=== PATIENT | male | born 1995 | race Caucasian/White ===

== ENCOUNTER 2019-08-15 21:01 | Emergency (ER) | payer OTHER ==
[~2019-08-15 21:01] MED LIST: ISOVUE-370 76%-LOCM 1 ML ONE
[2019-08-15] MEDS ORDERED: Ondansetron PF 4 MG/2 ML Vial ONE (21:34)
[2019-08-15] MEDS ORDERED: Morphine 4 MG/ML VIAL ONE (21:34)
[2019-08-15 21:40] LABS: #Basophils 0.1 thou/uL (0.0-0.2); #Lymphocytes 0.9 thou/uL (1.20-3.40); %Basophils 0.3 % (0.0-1.0); %Eosinophils 0.2 % (0.0-10.0); %Lymphocytes 4.8 % (21.0-51.0); %Monocytes 5.3 % (0.0-10.0); %Neutrophils 89.4 % (42.0-75.0); Hemoglobin 17.4 g/dL (14.0-18.0); Mean Corpuscular HGB CONC 34.3 g/dL (32.0-36.0); Mean Corpuscular Hemoglobin 30.4 pg (27.0-31.0); Mean Corpuscular Volume 88.8 fL (78.0-98.0); Mean Platelet Volume 8.2 fL (7.4-10.4); Platelet Count 297 thou/uL (130-400); RBC Distribution Width 11.8 % (11.5-14.5); Red Blood Cell (RBC) Count 5.72 mill/uL (4.70-6.10)
[2019-08-15 22:07] LABS: ALT (SGPT) 17 U/L (8-55); AST (SGOT) 17 U/L (5-34); Albumin 5.1 g/dL (3.5-5.0); Alkaline Phosphatase 75 U/L (40-150); Anion Gap 15 mmol/L (10-20); BUN (Urea Nitrogen) 12 mg/dL (8.9-20.6); Bilirubin, Total 1.1 mg/dL (0.2-1.2); Calc. Creatinine Clearance 0 mL/min (70-130); Calcium 10.1 mg/dL (7.8-10.44); Carbon Dioxide 26 mmol/L (22-29); Chloride 100 mmol/L (98-107); Estimated GFR-MDRD Greater than 90; Globulin 2.9 g/dL (2.4-3.5); Glucose 119 mg/dL (70-105); Potassium 3.4 mmol/L (3.5-5.1); Sodium 138 mmol/L (136-145)
[2019-08-15 23:00] LABS: Bacteria/HPF None Seen HPF (None Seen); Bilirubin Negative (Negative); Blood, Urine 2+ (Negative); Clarity Clear (Clear); Glucose, Urine (Dipstick) Normal (Negative); Leukocyte Negative Leu/uL (Negative); Nitrite Negative (Negative); Protein, Urine (Dipstick) 20 mg/dL (Neg-Trace); Squamous Epithelial None Seen HPF (0-3); Urobilinogen Normal mg/dL (Less than 2)
[2019-08-16] MEDS ORDERED: Lidocaine Viscous Sol 2% 15 ml UD Cup ONE (00:20)
[2019-08-16] MEDS ORDERED: Mag-Al 1200 mg/1200 mg/30 ML UDCUP ONE (00:20)
[2019-08-16] MEDS ORDERED: Morphine 4 MG/ML VIAL ONE (00:57)
[2019-08-16] MEDS ORDERED: Ondansetron PF 4 MG/2 ML Vial ONE (01:13)
--- NOTE | 2019-08-16 09:14 | CT ---
PRELIMINARY REPORT/[facility]/EMERGENCY AFTER HOURS PROCEDURE: EXAM: CT Abdomen and Pelvis With Contrast EXAM DATE/TIME: 08/16/2019 12:29 AM CLINICAL HISTORY: 24 years old, male; Abdominal pain; Patient HX: PT presents for upper abd pain and vomiting starting approx 8 hrs lpta. Denies fever, diarrhea, bloody stools, bloody emesis, or urinary symptoms. Alleviat ed by lying down and aggravated by eating. PT has had no medications for symptoms. He has history of celiac's, but states he has not eaten any gluten TECHNIQUE: Imaging protocol: Computed tomography of the abdomen and pelvis with intravenous contrast. COMPARISON: No relevant prior studies available. FINDINGS: Lungs: No mass. No consolidation. Left lower lobe punctate nonspecific pulmonary nodule (ax im 4). Liver: No acute findings. No mass. Gallbladder and bile ducts: No calcified stones. No ductal dilation. Pancreas: No acute findings. No mass. No ductal dilation. Spleen: No acute findings. No mass. Adrenals: No acute findings. No mass. 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 No hydroureter. Pu nctate nonobstructing left renal calculus. Mild left perirenal stranding/edema. Stomach and bowel: No obstruction. Appendix: No evidence of appendicitis. Intraperitoneal space: No free air. No significant fluid collection. Vasculature: No acute findings. No abdominal aortic aneurysm. Lymph nodes: No significant lymphadenopathy. Bladder: No acute findings. Reproductive: No acute findings. Bones/joints: No acute fracture. Soft tissues: No acute findings. 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 Punctate nonobstructing left renal calculus. Mild left perirenal stranding/edema. Thank you for allowing us to participate in the care of your patient. Dictated and Authenticated by: Erik Downs MD 08/16/2019 1:08 AM Central Time ([place] & [place]) FINAL REPORT CT OF ABDOMEN AND PELVIS: DATE: 08/16/2019. COMPARISON: None. HISTORY: Upper abdominal pain and vomiting. FINDINGS: I agree with the preliminary [facility] report. Imaged lung bases are unremarkable. No free intraperiton eal air or fluid. The liver, gallbladder, spleen, pancreas, and adrenal glands are unremarkable. There is a horseshoe kidney present. There is severe hydronephrosis and marked cortical thinning inv olving the left aspect of the horseshoe kidney. The renal pelvis on the left is dilated. The ureter on the left does not appear dilated. Evaluation of the bowel is limited without oral contrast media. There is no evidence for bowel infla mmatory change or bowel obstruction. A linear suture line in the region of the cecal apex suggests p rior appendectomy. There is a punctate intrarenal calculus within the left kidney posteriorly on axial image 41. There is minimal left-sided perinephric stranding, etiology uncertain. The vascular structures appear patent. No lymphadenopathy. No acute osseous abnormality. IMPRESSION: Horseshoe kidney with severe hydronephrosis and diffuse cortical thinning involving the left kidney. Perhaps this is related to a UPJ obstruction. There is mild left perinephric stranding, etiology un certain. Recommend followup urology consultation. CODE T POS: OFF
== END 2019-08-16 01:45 | disposition home or self-care (01) ==
LOC: ERS 21:01
DX: R10.10 Upper abdominal pain, unspecified (principal); R11.2 Nausea with vomiting, unspecified
CPT/HCPCS: 74177; 80053; 81003; 81015; 83690; 85025; 96361; 96374; 96375; 96376; J2270; J2405; Q9966

== ENCOUNTER 2020-02-02 16:50 | Emergency (ER) | payer OTHER ==
[2020-02-02 17:54] LABS: #Basophils 0.1 thou/uL (0.0-0.2); #Eosinphils 0.1 thou/uL (0.0-0.7); #Lymphocytes 1.3 thou/uL (1.20-3.40); #Monocytes 0.6 thou/uL (0.11-0.59); %Basophils 0.5 % (0.0-1.0); %Eosinophils 0.8 % (0.0-10.0); %Lymphocytes 10.7 % (21.0-51.0); %Monocytes 4.7 % (0.0-10.0); %Neutrophils 83.3 % (42.0-75.0); Hemoglobin 15.7 g/dL (14.0-18.0); Mean Corpuscular HGB CONC 34.5 g/dL (32.0-36.0); Mean Corpuscular Hemoglobin 30.9 pg (27.0-31.0); Mean Corpuscular Volume 89.5 fL (78.0-98.0); Platelet Count 274 thou/uL (130-400); RBC Distribution Width 11.6 % (11.5-14.5); Red Blood Cell (RBC) Count 5.09 mill/uL (4.70-6.10)
[2020-02-02 18:13] LABS: ALT (SGPT) 40 U/L (8-55); AST (SGOT) 25 U/L (5-34); Albumin 4.3 g/dL (3.5-5.0); Alkaline Phosphatase 72 U/L (40-110); Anion Gap 14 mmol/L (10-20); BUN (Urea Nitrogen) 12 mg/dL (8.9-20.6); Bilirubin, Total 0.6 mg/dL (0.2-1.2); Calc. Creatinine Clearance 0 mL/min (70-130); Calcium 8.9 mg/dL (7.8-10.44); Carbon Dioxide 24 mmol/L (22-29); Chloride 103 mmol/L (98-107); Estimated GFR-MDRD Greater than 90; Globulin 2.7 g/dL (2.4-3.5); Glucose 148 mg/dL (70-105); Potassium 3.5 mmol/L (3.5-5.1); Sodium 137 mmol/L (136-145)
--- NOTE | 2020-02-02 18:40 | CT ---
EXAM: BRAIN CT WITHOUT IV CONTRAST: 02/02/20 HISTORY: Possible seizure. Vomiting, convulsion. FINDINGS: There is a focal area of circumscribed low attenuation change in the left frontal lobe running horizo ntal from near the frontal horn of the left lateral ventricle to the lateral aspect of the left front al bone where this low attenuation appears to be slightly thicker in size. It measures approximately 0.7 x 3.2 cm. 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 This does not have the typical appea rafia or location for an infarct. A follow-up nonemergent MRI with and without contrast is recommende d for further assessment. IMPRESSION: Circumscribed well defined horizontal abnormal low attenuation focus in the left frontal lobe, probab ly focal schizencephalic defect. No mass effect or midline shift. No acute hemorrhage. Follow-up nonemergent brain MRI with and without IV contrast is recommended. POS: RRE
[2020-02-02 18:57] LABS: Bacteria/HPF None Seen HPF (None Seen); Bilirubin Negative (Negative); Blood, Urine Trace (Negative); Clarity Clear (Clear); Glucose, Urine (Dipstick) Normal (Negative); Leukocyte Negative Leu/uL (Negative); Nitrite Negative (Negative); Protein, Urine (Dipstick) 30 mg/dL (Neg-Trace); RBC/HPF 0-3 HPF (0-3); Squamous Epithelial None Seen HPF (0-3); Urobilinogen Normal mg/dL (Less than 2); WBC/HPF 0-3 HPF (0-3)
[2020-02-02 19:13] LABS: Amphetamine Not Detected (NotDetected); Barbiturates Screen Not Detected (NotDetected); Benzodiazepine Screen Not Detected (NotDetected); Cocaine Metabolite Screen Not Detected (NotDetected); Medtox Control Line Valid? VALID (VALID); Medtox Reader # READER 4; Methadone Not Detected (NotDetected); Methamphetamine Not Detected (NotDetected); Opiate Screen Not Detected (NotDetected); Oxycodone Screen Not Detected (NotDetected); Phencyclidine (PCP) Not Detected (NotDetected); THC/Cannabinoid Screen Not Detected (NotDetected); Tricyclic Screen Not Detected (NotDetected)
--- NOTE | 2020-02-05 14:49 | EKG ---
Test Reason : Blood Pressure : / mmHG Vent. Rate : 132 BPM Atrial Rate : 132 BPM P-R Int : 120 ms QRS Dur : 076 ms QT Int : 298 ms P-R-T Axes : 032 -11 014 degrees QTc Int : 441 ms Sinus tachycardia Nonspecific ST abnormality Abnormal ECG Confirmed by ASHER CASTELLON ([id number]), editorial cartoonist SAEED CAMARA ([id number]) on 02/05/2020 2:49:14 PM Referred By: Confirmed By:ASHER CASTELLON
== END 2020-02-02 19:53 | disposition home or self-care (01) ==
LOC: ERS 16:50
DX: E86.0 Dehydration (principal); R56.9 Unspecified convulsions
CPT/HCPCS: 36415; 70450; 80053; 80306; 81003; 81015; 84146; 85025; 93005; 96360

== ENCOUNTER 2020-10-07 22:27 | Emergency (ER) | payer OTHER ==
[~2020-10-07 22:27] MED LIST changes: -ISOVUE-370 76%-LOCM 1 ML ONE; +Iopamidol-370 76% 500 ML 1 ML ONE
[2020-10-07] MEDS ORDERED: Ondansetron PF 4 MG/2 ML Vial ONE (22:51)
[2020-10-07] MEDS ORDERED: Morphine 4 MG/ML VIAL ONE (22:51)
[2020-10-07 23:07] LABS: #Basophils 0.1 thou/uL (0.0-0.2); #Eosinphils 0.3 thou/uL (0.0-0.7); #Lymphocytes 2.4 thou/uL (1.20-3.40); #Monocytes 0.8 thou/uL (0.11-0.59); #Neutrophils 8.4 thou/uL (1.40-6.50); %Basophils 0.5 % (0.0-1.0); %Eosinophils 2.2 % (0.0-10.0); %Lymphocytes 19.9 % (21.0-51.0); %Monocytes 6.7 % (0.0-10.0); %Neutrophils 70.7 % (42.0-75.0); Hemoglobin 16.7 g/dL (14.0-18.0); Mean Corpuscular HGB CONC 35.2 g/dL (32.0-36.0); Mean Corpuscular Hemoglobin 31.1 pg (27.0-31.0); Mean Corpuscular Volume 88.5 fL (78.0-98.0); Mean Platelet Volume 8.3 fL (7.4-10.4); Platelet Count 294 thou/uL (130-400); RBC Distribution Width 11.7 % (11.5-14.5); Red Blood Cell (RBC) Count 5.35 mill/uL (4.70-6.10); White Blood Cell (WBC) Count 11.9 thou/uL (4.8-10.8)
[2020-10-07 23:27] LABS: Bacteria/HPF None Seen HPF (None Seen); Bilirubin Negative (Negative); Blood, Urine Trace (Negative); Clarity Clear (Clear); Glucose, Urine (Dipstick) Normal (Negative); Ketone, Urine Negative (Negative); Leukocyte Negative Leu/uL (Negative); Nitrite Negative (Negative); Protein, Urine (Dipstick) Negative (Neg-Trace); Specific Gravity, Urine 1.013 (1.002-1.036); Squamous Epithelial None Seen HPF (0-3); Urobilinogen Normal mg/dL (Less than 2); WBC/HPF None Seen HPF (0-3)
[2020-10-07 23:29] LABS: ALT (SGPT) 55 U/L (8-55); AST (SGOT) 36 U/L (5-34); Albumin 4.5 g/dL (3.5-5.0); Alkaline Phosphatase 68 U/L (40-110); Anion Gap 15 mmol/L (10-20); BUN (Urea Nitrogen) 21 mg/dL (8.9-20.6); Bilirubin, Total 0.4 mg/dL (0.2-1.2); Calc. Creatinine Clearance 0 mL/min (70-130); Calcium 9.4 mg/dL (7.8-10.44); Carbon Dioxide 26 mmol/L (22-29); Chloride 104 mmol/L (98-107); Estimated GFR-MDRD Greater than 90; Globulin 3.1 g/dL (2.4-3.5); Glucose 93 mg/dL (70-105); Potassium 3.9 mmol/L (3.5-5.1); Protein, Total 7.6 g/dL (6.0-8.3); Sodium 141 mmol/L (136-145)
--- NOTE | 2020-10-07 23:42 | CT ---
CT Abdomen Pelvis W Con HISTORY: Left-sided abdominal pain COMPARISON: 09/29/2020 and 08/16/2019 FINDINGS: The horseshoe kidney is again seen with significant hydronephrosis on the left which has worsened sin ce 09/29/2020 and is similar to that seen on 08/16/2019. No ureteral dilatation is seen on either side. There is diffuse cortical thinning involving the left kidney. The right kidney is normal. The lung bases are clear. The liver, spleen, pancreas and adrenal glands are normal. No calcified gal lstones are seen. A small hiatal hernia is present. No free air, free fluid or lymphadenopathy seen in the abdomen or pelvis. The aorta is of normal isabela ailyn. The bony structures are unremarkable. There are postop changes of previous appendectomy. IMPRESSION: Horseshoe kidney with severe hydronephrosis and cortical thinning on the left kidney, wor se since 09/29/2020.
== END 2020-10-08 00:12 | disposition home or self-care (01) ==
LOC: ERS 22:27
DX: Q63.1 Lobulated, fused and horseshoe kidney (principal); N13.30 Unspecified hydronephrosis
CPT/HCPCS: 74177; 80053; 81003; 81015; 85025; 87086; 96374; 96375; J2270; J2405; Q9967